=== PATIENT | female | born 1960 | race Two or more races ===

== ENCOUNTER 2018-02-04 17:18 | Emergency (ER) | payer OTHER ==
[~2018-02-04] VITALS: Ht 157.5 cm; Wt 82.0 kg
[2018-02-04] MEDS ORDERED: LORAZEPAM 1MG TABLET PO ONE (19:00)
[2018-02-04] MEDS ORDERED: KETOROLAC 15MG/ML VIAL IV ONE (19:00)
[2018-02-04] MEDS ORDERED: HYDROCODONE/ACETAMINOPHEN 5/325MG TABLET PO ONE (20:45)
[2018-02-04] MEDS ORDERED: LORAZEPAM 2MG/ML CPJ IV ONE (20:45)
[2018-02-04] MEDS ORDERED: HALOPERIDOL LACTATE 5MG/ML VIAL IM ONE (21:30)
[2018-02-05] MEDS ORDERED: KETAMINE HCL 50 MG/ML 10ML IV ONE (00:15)
[2018-02-05] MEDS ORDERED: PROPOFOL 200MG/20ML VIAL IV ONE (00:15)
[2018-02-05 02:23] VITALS: BP 126/78
== END 2018-02-05 02:23 | disposition home or self-care (01) ==
LOC: ER 17:18
DX: S43.004A Unspecified dislocation of right shoulder joint, initial encounter (principal); J45.909 Unspecified asthma, uncomplicated; Z88.5 Allergy status to narcotic agent; Z88.6 Allergy status to analgesic agent; Z88.8 Allergy status to other drugs, medicaments and biological substances; W19.XXXA Unspecified fall, initial encounter; Y93.89 Activity, other specified; Y92.89 Other specified places as the place of occurrence of the external cause; Y99.8 Other external cause status
CPT/HCPCS: 23650; 73020; 73030; 73200; 96372; 96374; 96375; 99152; 99153; 99285; J1630; J1885; J2060; J3490; J7030; A4565; J2704; L3670